=== PATIENT | male | born 1980 | race Caucasian/White ===

== ENCOUNTER 2018-05-05 04:52 | Emergency (ER) | payer SELFPAY ==
--- NOTE | 2018-05-05 05:21 | PDOC ---
History of Present Illness - General Chief Complaint: Pain, Acute Stated Complaint: ABDOMINAL PAIN Time Seen by Provider: 05/05/18 05:21 - History of Present Illness Initial Comments: The patient is a 37M who presents with 3 days of non-radiating, intermittent, cramping, periumbilical/epigastric abdominal pain. He reports that he ate a meal that no one around him ate and several hours after began to experience these symptoms. He denies associated fevers/chills, chest pain, SOB, N/V/D/C, or changes in urination. He denies ever having had this type of pain before. The pain is worsened after meals. He tried taking pepto-bismol with little relief. Denies having a PCP. 05/05/18 05:37 Past History - Past Medical History Allergies/Adverse Reactions: Allergies Allergy/AdvReac Type Severity Reaction Status Date / Time No Known Allergies Allergy Verified 05/05/18 05:27 Review of Systems - Review of Systems Able to Perform ROS?: Yes Comments:: GENERAL/CONSTITUTIONAL: No fever or chills. No weakness HEAD, EYES, EARS, NOSE AND THROAT: No change in vision. No ear pain or discharge. No sore throat CARDIOVASCULAR: No chest pain or shortness of breath RESPIRATORY: No cough, wheezing, or hemoptysis GASTROINTESTINAL: No nausea, vomiting, diarrhea or constipation GENITOURINARY: No dysuria, frequency, or change in urination MUSCULOSKELETAL: No joint or muscle swelling or pain. No neck or back pain SKIN: No rash NEUROLOGIC: No headache, vertigo, loss of consciousness, or change in strength/ sensation ENDOCRINE: No increased thirst. No abnormal weight change HEMATOLOGIC/LYMPHATIC: No anemia, easy bleeding, or history of blood clots ALLERGIC/IMMUNOLOGIC: No hives or skin allergy 05/05/18 06:10 *Physical Exam - Physical Exam Comments: GENERAL: Awake, alert, and fully oriented, in no acute distress HEAD: No signs of trauma, normocephalic, atraumatic EYES: PERRLA, EOMI, sclera anicteric, conjunctiva clear ENT: Auricles normal inspection, hearing grossly normal, nares patent, oropharynx clear without exudates. Moist mucosa NECK: Normal ROM, supple, no lymphadenopathy LUNGS: No distress, speaks full sentences, clear to auscultation bilaterally HEART: Regular rate and rhythm, normal S1 and S2, no murmurs appreciated, peripheral pulses normal and equal bilaterally ABDOMEN: Soft, periumbilical/epigastric TTP, hyperactive bowel sounds. No guarding, no rebound. EXTREMITIES : Normal inspection, Normal range of motion, no edema. No clubbing or cyanosis NEUROLOGICAL: Cranial nerves II through XII grossly intact. Normal speech, normal gait, no focal sensorimotor deficits SKIN: Warm, Dry, normal turgor 05/05/18 06:11 ED Treatment Course - LABORATORY CBC & Chemistry Diagram: 05/05/18 05:20 05/05/18 05:20 Medical Decision Making - Medical Decision Making The patient is a 37M with no reported PMH who presents with 3d of periumbilical abdominal pain. ED Course CMP, CBC, lipase will give GI coctail for symptomatic relief and plan for serial exams Patient denies N at this time 05/05/18 06:08 Morphine for pain FOBT negative Will obtain CT with contrast to evaluate for obstruction/diverticulosis Patient signed out to Dr. Bryant. Patient presentation and course so far discussed. 05/05/18 07:42 *DC/Admit/Observation/Transfer Diagnosis at time of Disposition: Food poisoning - Discharge Dispostion Disposition: HOME Condition at time of disposition: Improved Decision to Admit order: No - Referrals - Patient Instructions Printed Discharge Instructions: DI for Food Poisoning, DI for Gastritis - Post Discharge Activity
[2018-05-05 05:27] VITALS: BMI 26.6
[2018-05-05] MEDS ORDERED: SODIUM CHLORIDE 1,000 ML IV STA (05:29)
[2018-05-05 05:53] LABS: BASO % 0.5 % (0-2.0); EOS % 2.1 % (0-4.5); HEMATOCRIT 41.6 % (35.4-49); HEMOGLOBIN 14.6 GM/dL (11.7-16.9); LYMPH % 24.8 % (8-40); MCH 30.7 pg (25.7-33.7); MEAN CELL VOLUME 87.8 fl (80-96); MEAN PLT VOLUME 8.4 fl (7.5-11.1); NEUT % 61.6 % (42.8-82.8); PLATELET COUNT 239 K/MM3 (134-434); RBC 4.74 M/mm3 (4.00-5.60); RDW 12.2 % (11.9-15.9); WHITE BLOOD COUNT 6.4 K/mm3 (4.0-10.0)
[2018-05-05] MEDS ORDERED: LIDOCAINE VISCOUS 2% ORAL/TOP 20 ML UNIT-DOSE CUP MM ONE (05:56)
[2018-05-05] MEDS ORDERED: FAMOTIDINE 20 MG/50 ML IVPB 20 MG/50 ML MG IVPB ONE ×2 (05:56→06:05)
[2018-05-05] MEDS ORDERED: MAG HYDROX/AL HYDROX/SIMETH 30 ML UNIT-DOSE CUP PO ONE (05:56)
--- NOTE | 2018-05-05 05:57 | PDOC ---
Attending Attestation - HPI HPI: 05/05/18 06:48 The patient is a 37 year old male with no significant PMH who presents to the emergency department with severe epigastric pain for 3 days. The patient's reports that his pain is worsened after eating. He denies eating anything out of the norm, and fever or vomiting. The patient's reports that the patient has had sick contact with their children at home. The patient's states that her children recently came home from a stay away camp 1 week ago by which they both (7 year old daughter, 8 year old son) subsequently began experiencing similar epigastric belly pain. The patient's states that the children had multiple visits to the ED secondary to this epigastric pain. The patient denies any other symptoms. He denies any chills, nausea, diarrhea,constipation or urinary symptoms. He denies any chest pain, shortness of breath, headache and dizziness. The patient denies any other complaints. - Physicial Exam PE: 05/05/18 06:48 GENERAL: Awake, alert, and fully oriented, in no acute distress HEAD: No signs of trauma EYES: PERRLA, EOMI, sclera anicteric, conjunctiva clear ENT: Auricles normal inspection, hearing grossly normal, nares patent, oropharynx clear without exudates. Moist mucosa NECK: Normal ROM, supple, no lymphadenopathy, JVD, or masses LUNGS: Breath sounds equal, clear to auscultation bilaterally. No wheezes, and no crackles HEART: Regular rate and rhythm, normal S1 and S2, no murmurs, rubs or gallops ABDOMEN: (+)gassy and distended. Soft, nontender, normoactive bowel sounds. No guarding, no rebound. No masses EXTREMITIES: Normal range of motion, no edema. No clubbing or cyanosis. No cords, erythema, or tenderness NEUROLOGICAL: Cranial nerves II through XII grossly intact. Normal speech, normal gait SKIN: Warm, Dry, normal turgor, no rashes or lesions noted. Documentation prepared by Shadi Grover, acting as medical staff director for Su Christensen MD. <Shadi Grover - Last Filed: 05/05/18 06:48> - Resident Resident Name: Sesar Ocampo - ED Attending Attestation I have performed the following: I have examined & evaluated the patient, The case was reviewed & discussed with the resident, I agree w/resident's findings & plan - Medical Decision Making 05/05/18 07:26 Pt has abdominal pain and gassiness and bloating. His kids had a similar episode after coming back from camp. Both has abd pain x 4 days and were in and out of the ER finally getting treated with abx. Pt has normal labs and negative stool guaiac, however he is in a lot of pain. Pt will be sent for a CT abd pelvis to r/o diverticulitis. 05/05/18 21:42 Pt signed out to the day team <Su Christensen - Last Filed: 05/05/18 21:42>
[2018-05-05] MEDS ORDERED: MAG HYDROX/AL HYDROX/SIMETH 30 ML UNIT-DOSE CUP ONE (06:04)
[2018-05-05] MEDS ORDERED: LIDOCAINE VISCOUS 2% ORAL/TOP 20 ML UNIT-DOSE CUP ONE (06:04)
[2018-05-05 06:24] LABS: ALBUMIN 4.2 g/dl (3.4-5.0); ALK PHOS 73 U/L (45-117); ANION GAP 8 (8-16); BILIRUBIN,TOTAL 0.3 mg/dL (0.2-1.0); BLOOD UREA NITROGEN 19 mg/dL (7-18); CALCIUM 9.9 mg/dL (8.5-10.1); CHLORIDE 106 mmol/L (98-107); CO2 31 mmol/L (21-32); GLUCOSE,RANDOM 105 mg/dL (74-106); POTASSIUM 4.4 mmol/L (3.5-5.1); SGOT/AST 18 U/L (15-37); SGPT/ALT 28 U/L (12-78); SODIUM 145 mmol/L (136-145); TOT PROT 7.2 g/dl (6.4-8.2)
[2018-05-05] MEDS ORDERED: morphine CARPU-JECT 2 MG/1 ML DISP.SYRIN IVPUSH ONE (06:35)
[2018-05-05] MEDS ORDERED: MORPHINE SULFATE 2 MG/ML VIAL ONE (06:36)
[2018-05-05] MEDS ORDERED: ACETAMINOPHEN 1000 MG/100 ML VIAL (NON FORMULARY) IVPB ONE (06:36)
--- NOTE | 2018-05-05 07:42 | PDOC ---
*Physical Exam - Vital Signs Last Vital Signs Temp Pulse Resp BP Pulse Ox 98.5 F 76 18 145/83 100 05/05/18 04:53 05/05/18 04:53 05/05/18 04:53 05/05/18 04:53 05/05/18 04:53 ED Treatment Course - LABORATORY CBC & Chemistry Diagram: 05/05/18 05:20 05/05/18 05:20 - ADDITIONAL ORDERS Additional order review: Laboratory Results 05/05/18 05/05/18 05/05/18 06:45 05:20 05:20 Sodium 145 Potassium 4.4 Chloride 106 Carbon Dioxide 31 Anion Gap 8 BUN 19 H Creatinine 1.0 Creat Clearance w eGFR > 60 Random Glucose 105 Calcium 9.9 Total Bilirubin 0.3 AST 18 ALT 28 Alkaline Phosphatase 73 Total Protein 7.2 Albumin 4.2 Lipase 112 Stool Occult Blood Negative 05/05/18 05:20 RBC 4.74 MCV 87.8 MCHC 35.0 RDW 12.2 MPV 8.4 Neutrophils % 61.6 Lymphocytes % 24.8 Monocytes % 11.0 H Eosinophils % 2.1 Basophils % 0.5 - Medications Given in the ED: ED Medications Discontinued Medications Generic Name Dose Route Start Last Admin Trade Name Freq PRN Reason Stop Dose Admin Al Hydroxide/Mg Hydroxide 30 ml 05/05/18 05:56 05/05/18 06:13 Mylanta Oral Suspension - PO 05/05/18 05:57 30 ml ONCE ONE Administration Sodium Chloride 1,000 mls @ 1,000 mls/hr 05/05/18 05:29 05/05/18 06:02 Normal Saline - IV 05/05/18 06:28 1,000 mls/hr ASDIR STA Administration Famotidine/Sodium Chloride 20 mg in 50 mls @ 100 mls/hr 05/05/18 05:56 06:02 Pepcid 20 Mg Premixed Ivpb - IVPB 05/05/18 06:25 100 mls/hr ONCE ONE Administration Lidocaine HCl 20 ml 05/05/18 05:56 05/05/18 06:13 Xylocaine 2% Viscous Oral - MM 05/05/18 05:57 20 ml ONCE ONE Administration Morphine Sulfate 2 mg 05/05/18 06:35 05/05/18 06:40 Morphine Injection - IVPUSH 05/05/18 06:36 2 mg ONCE ONE Administration Medical Decision Making - Medical Decision Making Signed out by Dr. Ocampo. Pt provided GI cocktail and morphine for pain without relief. CBC, CMP, and lipase WNL. Will await results of CT abd/pelvis. Pt likely to be discharged if negative. 05/05/18 07:38 Pt was not given PO contrast before hand-off. Order changed to IV contrast per Dr. Carrizales (no concern for obstruction or perforation given pt symptoms and signs, will use IV for r/o diverticulitis). Pt going to CT scan. 05/05/18 08:59 CT scan shows no acute pathology. Pt will be discharged to home, with Maalox and Pepcid sent to pharmacy. Pt has no insurance and no PCP, will refer to [facility] internal medicine clinic. Strict return precautions provided. 05/05/18 11:09 *DC/Admit/Observation/Transfer Diagnosis at time of Disposition: Reflux gastritis - Discharge Dispostion Disposition: HOME Condition at time of disposition: Improved Decision to Admit order: No - Prescriptions Prescriptions: Famotidine [Pepcid] 20 mg PO DAILY PRN #30 tablet PRN Reason: Indigestion Mag Hydrox/Al Hydrox/Simeth [Mylanta Suspension -] 30 ml PO Q6H #1 bottle - Referrals Referrals: [facility] [place] [Provider Group] - Patient Instructions Printed Discharge Instructions: DI for Food Poisoning, DI for Gastritis Additional Instructions: You were seen today in the ER for your abdominal pain. The CT scan of your abdomen and lab work were all normal. Please follow-up with a primary care doctor at the [facility]. We also sent Maalox and Pecpid for your reflux symptoms. You may take these medications before mealtimes to help prevent reflux. Please also avoid spicy and acidic foods (tomatoes, dayday) Please return to the ER if you have worsening abdominal pain, fevers or chills, diarrhea or vomiting, if you can't tolerate food or fluids, or any other concerns. Print Language: [id number] - Post Discharge Activity
[2018-05-05 07:59] LABS: URINE APPEARANCE CLEAR; URINE BILIRUBIN NEGATIVE (<2.0 mg/dL); URINE COLOR STRAW; URINE GLUCOSE (UA) NEGATIVE (NEGATIVE); URINE KETONE NEGATIVE (NEGATIVE); URINE LEUK ESTERASE NEGATIVE (NEGATIVE); URINE NITRITE NEGATIVE (NEGATIVE); URINE PROTEIN NEGATIVE (NEGATIVE); URINE UROBILINOGEN NEGATIVE mg/dL (0.2-1.0)
[2018-05-05 11:48] VITALS: BP 123/88; PULSE 60; TEMP 98.2
== END 2018-05-05 11:26 | disposition home or self-care (01) ==
LOC: JER 04:52
PROC: 3E033NZ Introduction of Analgesics, Hypnotics, Sedatives into Peripheral Vein, Percutaneous Approach (ICD-10-PCS; principal; 2018-05-05)
PROC: 3E0337Z Introduction of Electrolytic and Water Balance Substance into Peripheral Vein, Percutaneous Approach (ICD-10-PCS; 2018-05-05)
PROC: 3E033GC Introduction of Other Therapeutic Substance into Peripheral Vein, Percutaneous Approach (ICD-10-PCS; 2018-05-05)
DX: T62.91XA Toxic effect of unspecified noxious substance eaten as food, accidental (unintentional), initial encounter (principal); Y92.89 Other specified places as the place of occurrence of the external cause
CPT/HCPCS: 36415; 74177-TC; 80053; 81003; 82272; 83690; 85025; 87077; 87086; 99282-25; J7030

== ENCOUNTER 2023-02-20 23:39 | Emergency (ER) | payer OTHER ==
[2023-02-20 23:56] VITALS: BP 123/80; PULSE 77; RESP 18; TEMP 98.5; BMI 25.8
[2023-02-21] MEDS ORDERED: ONDANSETRON *ODT* 4 MG TABLET SL ONE (03:45)
[2023-02-21] MEDS ORDERED: ONDANSETRON *ODT* 4 MG TABLET ONE (03:51)
== END 2023-02-21 04:19 | disposition home or self-care (01) ==
LOC: JER 23:39
DX: S22.20XA Unspecified fracture of sternum, initial encounter for closed fracture (principal); R07.2 Precordial pain; V49.40XA Driver injured in collision with unspecified motor vehicles in traffic accident, initial encounter; Y93.89 Activity, other specified; Y92.410 Unspecified street and highway as the place of occurrence of the external cause
CPT/HCPCS: 71046-TC-FY; 71250-TC; 93005; 93010; 99285-25; Q0162

== ENCOUNTER 2023-02-26 07:59 | Emergency (ER) | payer OTHER ==
[2023-02-26 08:13] VITALS: BMI 25.8
[2023-02-26 11:38] LABS: BASO % 0.4 % (0-2.0); EOS % 1.1 % (0-4.5); HEMATOCRIT 38.3 % (35.4-49); HEMOGLOBIN 13.4 GM/dL (11.7-16.9); LYMPH % 26.7 % (8-40); MCH 30.2 pg (25.7-33.7); MCHC 35.1 g/dl (32.0-35.9); MONO % 9.5 % (3.8-10.2); NEUT % 62.3 % (42.8-82.8); PLATELET COUNT 326 10^3/uL (134-434); RBC 4.45 M/mm3 (4.00-5.60); WHITE BLOOD COUNT 6.2 K/mm3 (4.0-10.0)
[2023-02-26 11:46] LABS: INR 0.97 (0.83-1.09); PROTHROMBIN TIME (PATIENT) 11.3 SEC (9.7-13.0)
[2023-02-26 11:49] LABS: ACTIVATED PTT 33.5 SECONDS (25.2-36.5)
[2023-02-26 11:55] LABS: POTASSIUM 4.1 mmol/L (3.5-5.1)
[2023-02-26 11:57] LABS: CALCIUM 9.5 mg/dL (8.5-10.1)
[2023-02-26 11:58] LABS: ALBUMIN 4.5 g/dl (3.4-5.0); BLOOD UREA NITROGEN 18.5 mg/dL (7-18)
[2023-02-26 12:01] LABS: CREATININE 0.9 mg/dL (0.55-1.3)
[2023-02-26 12:03] LABS: BILIRUBIN,TOTAL 0.3 mg/dL (0.2-1); TOT PROT 7.8 g/dl (6.4-8.2)
[2023-02-26 12:31] VITALS: TEMP 97.9
[2023-02-26] MEDS ORDERED: KETOROLAC TROMETHAMINE 15 MG/ML VIAL IVPUSH ONE (16:25)
[2023-02-26] MEDS ORDERED: KETOROLAC TROMETHAMINE 15 MG/ML VIAL ONE (16:29)
[2023-02-26 16:46] VITALS: BP 148/98; PULSE 74; RESP 20
== END 2023-02-26 16:51 | disposition home or self-care (01) ==
LOC: JER 07:59
PROC: 3E0333Z Introduction of Anti-inflammatory into Peripheral Vein, Percutaneous Approach (ICD-10-PCS; principal; 2023-02-26)
DX: R07.9 Chest pain, unspecified (principal); S22.20XA Unspecified fracture of sternum, initial encounter for closed fracture; R06.02 Shortness of breath; R68.83 Chills (without fever); W22.8XXA Striking against or struck by other objects, initial encounter
CPT/HCPCS: 36415; 71046-TC-FY; 71275-TC; 74174-TC; 80053; 85025; 85610; 85730; 93005; 93010; 93308; 99285-25; Q9967